=== PATIENT | female | born 1985 | race Caucasian/White ===

== ENCOUNTER 2022-05-07 19:56 | Inpatient (IN) | payer BC ==
[~2022-05-07] VITALS: Ht 170.2 cm; Wt 64.9 kg
--- NOTE | 2022-05-07 20:55 | NUR ---
BIBS C/O RLQ PAIN X24 HRS. INCREASED PAIN ON AMBULATION. DENIES ANY PAIN WITH URINATION BUT STATES SHE MAY BE HAVING ABNORMAL BM.PAIN 6/10 CONSTANT CRAMPING. AWAKE AND ALERT X4 BREATHING EVEN AND UNLABORED. CHANGED INTO GOWN AND PLACED ON MONITOR AND V.S WNL.
--- NOTE | 2022-05-07 20:56 | NUR ---
20G IV LINE ESTABLISHED RAC. BLOOD DRAWN AND SENT TO LAB
[2022-05-07] MEDS ORDERED: IV NS 0.9% 1,000 ML BAG IV ONE (21:00)
--- NOTE | 2022-05-07 21:01 | NUR ---
URINE COLLECTED AND SENT TO LAB
[2022-05-07 21:30] LABS: BILIRUBIN,URINE NEGATIVE (NEGATIVE); COLOR,URINE YELLOW (YELLOW); LEUKOCYTE ESTERASE ,URINE NEGATIVE (NEGATIVE); NITRITE, URINE NEGATIVE (NEGATIVE); PROTEIN,URINE NEGATIVE (NEGATIVE); UGLUCOSE NEGATIVE (NEGATIVE); UROBILINOGEN,URINE 0.2 EU/dL (0.2)
[2022-05-07 21:38] LABS: BASOPHILS % (AUTO) 0.4 % (0.0-2.0); EOSINOPHILS % (AUTO) 2.1 % (0.0-6.0); HEMATOCRIT 39 % (33-45); HEMOGLOBIN 12.9 g/dL (11.5-14.8); LYMPHOCYTES % (AUTO) 27.4 % (20.0-44.0); MEAN CORPUSCULAR HGB CONC 34 g/dl (31.0-36.0); MEAN CORPUSCULAR VOLUME 92 fL (82-100); MONOCYTES # (AUTO) 0.5 K/uL (0.1-1.30); MONOCYTES % (AUTO) 6.4 % (2.0-12.0); NEUTROPHILS # (AUTO) 4.6 K/uL (1.8-8.9); NEUTROPHILS % (AUTO) 63.7 % (43.0-81.0); PLATELET COUNT (AUTO) 361 K/uL (150-450); RED BLOOD CELL COUNT(AUTO) 4.18 MIL/uL (4.0-5.2); WHITE BLOOD COUNT (AUTO) 7.3 K/uL (4.3-11.0)
[2022-05-07 21:42] LABS: BILIRUBIN,DIRECT 0.1 mg/dL (0.0-0.2); BILIRUBIN,TOTAL 0.6 mg/dL (0.2-1.0); CALCIUM, SERUM 9.1 mg/dL (8.5-10.1); CREATININE 0.7 mg/dL (0.6-1.3); POTASSIUM 3.7 mmol/L (3.5-5.1); TOTAL PROTEIN, SERUM 7.9 g/dL (6.4-8.2)
[2022-05-07 21:44] LABS: BACTERIA,URINE None seen /HPF (None Seen); SQUAMOUS EPITHELIAL CELL,UR 0-2 /HPF (None Seen); WBC,URINE 0-2 /HPF (0-3)
--- NOTE | 2022-05-07 21:47 | NUR ---
PT AT CT SCAN
[2022-05-07 21:52] LABS: ALBUMIN 3.8 g/dL (3.4-5.0)
[2022-05-07] MEDS ORDERED: ACETAMINOPHEN 325 MG TABLET PO ONE (22:00)
[2022-05-07] MEDS ORDERED: ACETAMINOPHEN ES 500 MG TABLET ONE (22:22)
--- NOTE | 2022-05-07 23:29 | NUR ---
DR. LONGORIA - SURGEON PAGED FOR CONSULT. MESSAGE LEFT
[2022-05-07] MEDS ORDERED: PIPERACILLIN /TAZOBACTAM 3.375 G in IV D5W 50 ML IV ONE (23:30)
[2022-05-07] MEDS ORDERED: PIPERACILLIN /TAZOBACTAM 3.375 G VIAL IV ONE (23:31)
--- NOTE | 2022-05-07 23:49 | NUR ---
jerry collected and sent to lab
[2022-05-08] MEDS ORDERED: MAGNESIUM HYDROXIDE 30 ML UDC PO PRN (01:00)
[2022-05-08] MEDS ORDERED: ZOLPIDEM TARTRATE 5 MG TABLET PO PRN (01:00)
[2022-05-08] MEDS ORDERED: MORPHINE SULFATE INJ 2 MG/ML DISP.SYRIN IV PRN (01:00)
[2022-05-08] MEDS ORDERED: MAG HYDROX/AL HYDROX/SIMETH 30 ML UDC PO PRN (01:00)
[2022-05-08] MEDS ORDERED: ONDANSETRON HCL/PF 4 MG/2 ML VIAL IVP PRN (01:00)
[2022-05-08] MEDS ORDERED: Z GUARD REMEDY 4 OZ OINT TP PRN (01:00)
--- NOTE | 2022-05-08 01:35 | NUR ---
REPORT GIVEN TO DAVID
--- NOTE | 2022-05-08 01:48 | NUR ---
pt transported to room 324 via [facility] in stable condition
[2022-05-08 02:00] VITALS: BP 100/64
[2022-05-08 02:23] VITALS: BP 100/60
--- NOTE | 2022-05-08 02:25 | NUR ---
MS RN NOTES PT ARRIVED TO UNIT VIA GURNEY PT ABLE TO AMBULATE TO BED NOTED WITH STABLE GAIT. PT A/O X4 ON ROOM AIR TOLERATING WELL. NO PAIN OR DISCOMFORT REPORTED AT THIS TIME. PT NOTED WITH RAC 20G FLUSHING WELL. RUNNING NS @125ML/HR TOLERATING WELL. PT SKIN IS INTACT NO DISCOLORATION NOTED. PT ORIENTED TO UNIT AND ROOM CALL LIGHT WITHIN REACH. TABLE WITHIN REACH. PT TO REMAIN NPO ATTHIS ITME. PT AWARE. WILL CONTINUE TO MONITOR.
[2022-05-08] MEDS ORDERED: PIPERACILLIN /TAZOBACTAM 3.375 G VIAL IV ONE (05:37)
[2022-05-08] MEDS ORDERED: PIPERACILLIN /TAZOBACTAM 3.375 G in IV D5W 50 ML IV SCH ×2 (06:00→12:00)
--- NOTE | 2022-05-08 07:16 | NUR ---
MS RN NOTES PT AWAKE IN BED, ON ROOM AIR TOLERATING WELL. NO DISTRESS NO PAIN REPORTED AT THIS TIME. ALL NEEDS MET.WILL ENDORSE CARE TO DAY SHIFT NURSE.
[2022-05-08 08:00] VITALS: BP 107/67
[2022-05-08] MEDS: IV NS 0.9% 1,000 ML IV PRN (11:38)
[2022-05-08] MEDS: PIPERACILLIN /TAZOBACTAM 3.375 G in IV D5W 100 ML IV SCH ×2 (13:39→23:14)
--- NOTE | 2022-05-08 14:31 | NUR ---
RN MS NOTES PT IN BED, AWAKE, ALERT AND ORIENTED, INFORMED OF SCHEDULED SURGERY, PER PT, SHE WILL SIGN CONSENTS AFTER SPEAKING WITH THE SURGEON, PICKED UP BY O.R. STAFF VIA BED IN STABLE CONDITION.
[2022-05-08] MEDS ORDERED: ANESTHESIA TRAY IN PYXIS 1 EA TRAY MC ONE (14:43)
[2022-05-08] MEDS ORDERED: BUPIVACAINE MPF 0.5% W/EPI INJ 30 ML VIAL ONE (14:44)
[2022-05-08 14:45] VITALS: BP 107/67
[2022-05-08] MEDS ORDERED: FENTANYL PF 250MCG/5ML AMPUL ONE (15:14)
[2022-05-08] MEDS ORDERED: MIDAZOLAM HCL 2 MG/2ML VIAL ONE (15:14)
[2022-05-08] MEDS ORDERED: FAMOTIDINE/PF INJ 20 MG/2 ML VIAL IV ONE (15:15)
[2022-05-08] MEDS ORDERED: ROCURONIUM BROMIDE 50 MG/5 ML ONE (15:15)
[2022-05-08] MEDS ORDERED: HYDROMORPHONE 1 MG/1 ML DISP.SYRIN ONE (16:23)
--- NOTE | 2022-05-08 16:45 | NUR ---
RN receiving Notes Received report from OR nurse, pt AOx4, no signs of distress, able to express concerns. Pts dressing is clean, dry and intact. VSS. Will continue to monitor throughout shift.
[2022-05-08] MEDS: ACETAMINOPHEN 325 MG TABLET PO PRN (17:55)
--- NOTE | 2022-05-08 18:45 | NUR ---
RN Closing Notes Pt AOx4, states pain is under control, pt able to express concerns. Consumed 100% of her dinner. Pt states and shows no symptoms of distress. Table and call light at bedside, bed at lowest position, VSS, All safety precautions taken.
[2022-05-08 20:00] VITALS: BP 109/73
[2022-05-09] MEDS: ACETAMINOPHEN 325 MG TABLET PO PRN
[2022-05-09] MEDS: PIPERACILLIN /TAZOBACTAM 3.375 G in IV D5W 100 ML IV SCH (05:14)
[2022-05-09 06:07] LABS: BASOPHILS % (AUTO) 0.2 % (0.0-2.0); EOSINOPHILS % (AUTO) 0.7 % (0.0-6.0); HEMATOCRIT 35 % (33-45); HEMOGLOBIN 11.7 g/dL (11.5-14.8); LYMPHOCYTES # (AUTO) 0.6 K/uL (0.8-4.8); LYMPHOCYTES % (AUTO) 6.7 % (20.0-44.0); MEAN CORPUSCULAR HGB CONC 34 g/dl (31.0-36.0); MEAN CORPUSCULAR VOLUME 92 fL (82-100); MONOCYTES # (AUTO) 0.5 K/uL (0.1-1.30); NEUTROPHILS # (AUTO) 7.7 K/uL (1.8-8.9); NEUTROPHILS % (AUTO) 86.4 % (43.0-81.0); PLATELET COUNT (AUTO) 341 K/uL (150-450); RED BLOOD CELL COUNT(AUTO) 3.77 MIL/uL (4.0-5.2); WHITE BLOOD COUNT (AUTO) 8.9 K/uL (4.3-11.0)
--- NOTE | 2022-05-09 06:40 | NUR ---
MS/RN OPENING NOTE RECEIVED PATIENT RESTING IN BED. AWAKE, ALERT AND ORIENTED X 4. ABLE TO MAKE NEEDS KNOWN. DENIES PAIN AT THIS TIME. CONTINUES ON ROOM AIR WITH NO S/SX OF RESPIRATORY DISTRESS NOTED. IV ACCESS TO RIGHT AC #20G INTACT AND PATENT. CONTINUES ON IVF NS @ 125ML/HR. CONTINUES ON IV ABX. ABDOMINAL SURGICAL INCISIONS WITH DRESSINGS C/D/I. PATIENT IS AMBULATORY WITH STEADY GAIT. CALL LIGHT WITHIN REACH. ASPIRATION, FALL AND SAFETY PRECAUTIONS MAINTAINED. ALL NEEDS ATTENDED TO AT THIS TIME. Addendum: 05/09/22 at 0802 by PARKER MG RN NOTE TIME IS 05/08 @ 1940
--- NOTE | 2022-05-09 06:50 | NUR ---
MS/RN CLOSING NOTE PATIENT CURRENTLY RESTING IN BED. AWAKE, ALERT AND ORIENTED X 4. ABLE TO MAKE NEEDS KNOWN. DENIES PAIN AT THIS TIME. CONTINUES ON ROOM AIR WITH NO S/SX OF RESPIRATORY DISTRESS NOTED. IV ACCESS TO RIGHT AC #20G INTACT AND PATENT. CONTINUES ON IVF NS @ 125ML/HR. CONTINUES ON IV ABX. ABDOMINAL SURGICAL INCISIONS WITH DRESSINGS C/D/I. PATIENT IS AMBULATORY WITH STEADY GAIT. CALL LIGHT WITHIN REACH. ASPIRATION, FALL AND SAFETY PRECAUTIONS MAINTAINED. ALL NEEDS ATTENDED TO AT THIS TIME. WILL ENDORSE PLAN OF CARE TO ONCOMING SHIFT RN.
[2022-05-09 06:58] LABS: CALCIUM, SERUM 7.8 mg/dL (8.5-10.1); CREATININE 0.8 mg/dL (0.6-1.3); MAGNESIUM 2.1 mg/dL (1.8-2.4); PHOSPHORUS 3.4 mg/dL (2.5-4.9); POTASSIUM 3.8 mmol/L (3.5-5.1)
[2022-05-09 08:00] VITALS: BP 114/75
--- NOTE | 2022-05-09 08:00 | NUR ---
RN OPENING NOTE PATIENT RECEIVED IN BED, AO X 4, ABLE TO RESPONDS ALL STIMULI. IN NO ACUTE DISTRESS NOTED. RESPIRATORY EVEN AND UNLABORED ON ROOM AIR. SKIN IS WARM TO TOUCH, KEEP CLEAN/DRY. KEPT ELEVATED HOB FOR ENSURE AIRWAY AND ASPIRATION PRECAUTION, ALSO LOWEST POSITION OF THE BED, S/R UP X 3, BED ALARM IS ON AT ALL THE TIMES. ALL SAFETY PRECAUTION APPLIED. CALL LIGHT WITHIN REACH, WILL CONTINUE TO MONITOR.
[2022-05-09] MEDS: IV NS 0.9% 1,000 ML IV PRN (11:42)
[2022-05-09] MEDS ORDERED: SIMETHICONE 80 MG TAB.CHEW PO PRN (12:00)
--- NOTE | 2022-05-09 15:05 | NUR ---
PATIENT DISCHARGE TO HOME, GIVEN DISCHARGE INSTRUCTION INCLUDE FOLLOW UP DR. LONGORIA IN ONE WEEK AND GIVEN OFFICE NUMBER. PATIENT LEFT FACILITY ACCOMPANIED BY STAFF TO THE PRIVATE CAR, IN STABLE CONDITION.
== END 2022-05-09 15:00 | disposition home or self-care (01) | DRG 343 ==
LOC: ER 20:01 → MED 05-08 01:05
PROVIDERS: ADMIT Nurse Practitioner Acute Care
PROC: 0DTJ4ZZ Resection of Appendix, Percutaneous Endoscopic Approach (ICD-10-PCS; principal; 2022-05-08)
DX: K35.80 Unspecified acute appendicitis (principal); K58.9 Irritable bowel syndrome, unspecified; Z20.822 Contact with and (suspected) exposure to COVID-19; T83.32XA Displacement of intrauterine contraceptive device, initial encounter; Y92.009 Unspecified place in unspecified non-institutional (private) residence as the place of occurrence of the external cause; Y76.2 Prosthetic and other implants, materials and accessory obstetric and gynecological devices associated with adverse incidents; Y83.1 Surgical operation with implant of artificial internal device as the cause of abnormal reaction of the patient, or of later complication, without mention of misadventure at the time of the procedure
CPT/HCPCS: 36415; 71045-TC; 80048-TC; 80076-TC; 81001; 83690-TC; 83735-TC; 84100-TC; 84703-TC; 85025-TC; 85730-TC; 87081-TC; C9803; G0378; J0690; J1100; J1170; J2250; J2270; J2405; J2543; J2704; J2765; J3010; J3490; J7030; J7060